=== PATIENT | female | born 1990 | race Caucasian/White ===

== ENCOUNTER 2024-03-31 01:26 | Emergency (ER) | payer OTHER ==
[~2024-03-31] VITALS: Ht 160 cm; Wt 111.1 kg
[2024-03-31 02:07] LABS: Source, Urine Clean Catch
[2024-03-31 02:15] LABS: Blood, Urine 1+ (Neg); Glucose Qualitative, Urine Neg (Neg); Ketones, Urine Neg (Neg); Leukocyte Esterase, Urine Neg (Neg); Nitrite, Urine Neg (Neg); Protein, Urine 1+ (Neg); Specific Gravity, Urine 1.025 (1.003-1.022); Urobilinogen, Urine 2+ (Normal)
[2024-03-31 02:21] LABS: Appearance, Urine Hazy (Clear); Bilirubin, Urine 1+ (Neg); Color, Urine Amber (P-Yellow)
[2024-03-31 02:22] LABS: Bacteria Few /hpf; Red Blood Cells, Urine 0-2 /hpf (0-2); Squamous Epithelial Cells Many /hpf (Few); White Blood Cells, Urine 0-2 /hpf (0-5)
[2024-03-31 02:28] LABS: Albumin, Blood 4.3 g/dL (3.4-5.0); Albumin/Globulin Ratio 1.1 (0.8-1.8); Bilirubin, Total 0.4 mg/dL (0.1-1.0); Bun/Creatinine Ratio 24.7 (12.0-20.0); Calcium, Blood 9.1 mg/dL (8.5-10.1); Creatinine, Blood 0.65 mg/dL (0.40-1.00); Globulin, Blood 3.8 g/dL (2.2-4.0); Potassium, Blood 3.7 mmol/L (3.5-5.5); Total Protein, Blood 8.1 g/dL (6.4-8.2)
[2024-03-31 02:36] LABS: BASOPHILS ABSOLUTE AUTO 0.04 K/mm3 (0.00-0.23); BASOPHILS PERCENT AUTO 1 % (0-2); EOSINOPHILS ABSOLUTE AUTO 0.26 K/mm3 (0.00-0.68); EOSINOPHILS PERCENT AUTO 4 % (0-6); Hematocrit 37.7 % (33.0-51.0); Hemoglobin 13.3 g/dL (11.5-16.0); IMMATURE GRAN ABSOLUTE AUTO 0.04 K/mm3 (0.00-0.10); IMMATURE GRAN PERCENT AUTO 1 % (0-1); LYMPHOCYTES ABSOLUTE AUTO 1.71 K/mm3 (0.84-5.20); LYMPHOCYTES PERCENT AUTO 26 % (21-46); MONOCYTES ABSOLUTE AUTO 0.53 K/mm3 (0.16-1.47); MONOCYTES PERCENT AUTO 8 % (4-13); Mean Corpuscular HGB 31.1 pg (26.0-34.0); Mean Corpuscular HGB Conc 35.3 g/dL (31.5-36.5); Mean Corpuscular Volume 88 fL (80-100); Mean Platelet Volume 9.8 fL (9.1-12.4); NEUTROPHILS ABSOLUTE AUTO 3.92 K/mm3 (1.96-9.15); NEUTROPHILS PERCENT AUTO 60 % (41-73); Platelet Count 266 K/mm3 (150-400); RDW Coefficient Variation 12.6 % (11.7-14.2); RDW Standard Deviation 40.7 fL (35.1-46.3); Red Blood Cell Count 4.27 M/mm3 (3.80-5.20)
== END 2024-03-31 03:36 | disposition home or self-care (01) ==
LOC: ER 01:26
PROVIDERS: Emergency Medicine
DX: K80.50 Calculus of bile duct without cholangitis or cholecystitis without obstruction (principal)
CPT/HCPCS: 76705; 80053; 81001; 81025; 83690; 85025; 99284-25

== ENCOUNTER 2024-04-14 01:18 | Observation (INO) | payer OTHER ==
[~2024-04-14] VITALS: Ht 160 cm; Wt 108.9 kg
[2024-04-14 02:07] LABS: Source, Urine Clean Catch
[2024-04-14 02:18] LABS: Bilirubin, Urine Neg (Neg); Blood, Urine 1+ (Neg); Glucose Qualitative, Urine Neg (Neg); Ketones, Urine Neg (Neg); Leukocyte Esterase, Urine Neg (Neg); Nitrite, Urine Neg (Neg); Protein, Urine 1+ (Neg); Specific Gravity, Urine 1.025 (1.003-1.022); Urobilinogen, Urine 1+ (Normal)
[2024-04-14 02:23] LABS: Appearance, Urine Hazy (Clear); Color, Urine Yellow (P-Yellow)
[2024-04-14 02:24] LABS: Anion Gap 10 mmol/L (3-11); Blood Urea Nitrogen 16 mg/dL (8-24); Bun/Creatinine Ratio 24.5 (12.0-20.0); CO2, Blood 24 mmol/L (21-32); Calcium, Blood 9.6 mg/dL (8.5-10.1); Chloride, Blood 110 mmol/L (98-108); Creatinine, Blood 0.65 mg/dL (0.40-1.00); Glomerular Filtration Rate 121 (60-); Glucose, Blood 105 mg/dL (70-99); Potassium, Blood 4.1 mmol/L (3.5-5.5); Sodium, Blood 140 mmol/L (136-145)
[2024-04-14 02:24] LABS: Bacteria Mod /hpf; Red Blood Cells, Urine 0-2 /hpf (0-2); Squamous Epithelial Cells Mod /hpf (Few); White Blood Cells, Urine 0-2 /hpf (0-5)
[2024-04-14] MEDS ORDERED: Piperacillin/Tazobactam Sod 4.5 GM in NS 100 ML IV ONE (02:45)
[2024-04-14 02:58] LABS: BASOPHILS ABSOLUTE AUTO 0.05 K/mm3 (0.00-0.23); BASOPHILS PERCENT AUTO 1 % (0-2); EOSINOPHILS ABSOLUTE AUTO 0.26 K/mm3 (0.00-0.68); EOSINOPHILS PERCENT AUTO 5 % (0-6); Hematocrit 37.5 % (33.0-51.0); IMMATURE GRAN ABSOLUTE AUTO 0.11 K/mm3 (0.00-0.10); IMMATURE GRAN PERCENT AUTO 2 % (0-1); LYMPHOCYTES ABSOLUTE AUTO 1.92 K/mm3 (0.84-5.20); LYMPHOCYTES PERCENT AUTO 35 % (21-46); MONOCYTES ABSOLUTE AUTO 0.41 K/mm3 (0.16-1.47); MONOCYTES PERCENT AUTO 8 % (4-13); Mean Corpuscular HGB 30.7 pg (26.0-34.0); Mean Corpuscular HGB Conc 34.7 g/dL (31.5-36.5); Mean Corpuscular Volume 89 fL (80-100); Mean Platelet Volume 9.7 fL (9.1-12.4); NEUTROPHILS ABSOLUTE AUTO 2.68 K/mm3 (1.96-9.15); NEUTROPHILS PERCENT AUTO 49 % (41-73); Platelet Count 294 K/mm3 (150-400); RDW Coefficient Variation 12.1 % (11.7-14.2); RDW Standard Deviation 38.5 fL (35.1-46.3); Red Blood Cell Count 4.23 M/mm3 (3.80-5.20); White Blood Cell Count 5.43 K/mm3 (4.00-11.30)
[2024-04-14] MEDS ORDERED: Ondansetron HCl 2 MG / ML 2ML Vial IV PRN (03:00)
[2024-04-14] MEDS ORDERED: HYDROmorphone HCl/Pf 1MG SYR IV PRN (03:00)
[2024-04-14] MEDS ORDERED: Acetaminophen 325 MG TABLET PO PRN (03:00)
[2024-04-14 03:39] LABS: Albumin, Blood 4.3 g/dL (3.4-5.0); Albumin/Globulin Ratio 1.2 (0.8-1.8); Aspartate Aminotrans (AST/SGOT 19 U/L (12-37); Bilirubin, Total 0.4 mg/dL (0.1-1.0); Globulin, Blood 3.7 g/dL (2.2-4.0)
[2024-04-14 04:27] LABS: Alanine Aminotransfer (ALT/SGP 28 U/L (12-78); Alk Phos 93 U/L (50-136); Bilirubin, Direct <0.1 mg/dL (0.0-0.3)
[2024-04-14 04:28] LABS: Bilirubin, Indirect Unable to Calculate mg/dL (0.1-0.7)
[2024-04-14 07:23] VITALS: BP 132/89
--- NOTE | 2024-04-14 08:13 | NUR ---
ARRIVAL PT ARRIVED TO UNIT FROM ER VIA WHEELCHAIR. STOOD AND TRANSFERED TO BED WITH NO WEAKNESS. REPORTS DULL, CONSISTANT ACHE TO MID EPIGASTRIC/RUQ. DENIES NEED FOR ANY MEDICATIONS. NO NAUSEA REPORTED. EDUCATED ON NPO STATUS AT THIS TIME AND AGREEABLE. CALL LIGHT PROVIDED.
[2024-04-14] MEDS ORDERED: CETI5 PO (09:00)
[2024-04-14] MEDS ORDERED: MAGNESIUM CITR100 M1 PO (09:01)
[2024-04-14] MEDS ORDERED: DEXT10ER PO (09:01)
[2024-04-14] MEDS ORDERED: FLU VACC TS2024-25(6MOS UP)/PF 45 MCG/0.5 ML SYRINGE IM ONE (12:05)
[2024-04-14] MEDS ORDERED: OMEP20ER PO (12:06)
--- NOTE | 2024-04-14 12:11 | NUR ---
DISCHARGE PT REPORTED PAIN STABLE DURING SHIFT. SPOKE WITH DR. BARCALY, NO NEED FOR SURGERY. AMBULATED OUT ON HER OWN. ALL BELONGINGS WITH PATIENT. DR. BARCLAY DISCUSSED PATIENT TAKING PRILOSEC 20MG ON DISCHARGE AND PT PLANS TO PICK SOME UP. IV REMOVED WNL.
== END 2024-04-14 12:12 | disposition home or self-care (01) ==
LOC: ER 01:18 → ERHOLD 01:19 → EDBEDREQ 02:56 → SURS 07:14
PROVIDERS: Student in an Organized Health Care Education/Training Program; ADMIT Surgery
DX: K80.20 Calculus of gallbladder without cholecystitis without obstruction (principal); E28.2 Polycystic ovarian syndrome; J45.909 Unspecified asthma, uncomplicated
CPT/HCPCS: 76705; 80048; 80076; 81001; 81025; 83690; 85025; 87086; 96365; 99285-25; G0378; J2543

== ENCOUNTER → 2024-06-29 | Outpatient (CLI) | payer OTHER ==
[~2024-06-29] MED LIST: CETI5 PO; DEXT10ER PO; MAGNESIUM CITR100 M1 PO; OMEP20ER PO
== END ==
LOC: LAB 09:30 → LAB SHORT 09:30
DX: R30.0 Dysuria (principal)
CPT/HCPCS: 87086

== ENCOUNTER 2024-07-07 22:59 | Observation (INO) | payer OTHER ==
[~2024-07-07] VITALS: Ht 160 cm; Wt 108.7 kg
[2024-07-08] VITALS (16 sets, daily range): BP systolic 112–137; BP diastolic 74–108
[2024-07-08] LABS: BASOPHILS ABSOLUTE AUTO 0.05 K/mm3 (0.00-0.23); BASOPHILS PERCENT AUTO 1 % (0-2); EOSINOPHILS ABSOLUTE AUTO 0.26 K/mm3 (0.00-0.68); EOSINOPHILS PERCENT AUTO 4 % (0-6); Hematocrit 35.4 % (33.0-51.0); Hemoglobin 12.7 g/dL (11.5-16.0); IMMATURE GRAN ABSOLUTE AUTO 0.05 K/mm3 (0.00-0.10); IMMATURE GRAN PERCENT AUTO 1 % (0-1); LYMPHOCYTES ABSOLUTE AUTO 2.42 K/mm3 (0.84-5.20); LYMPHOCYTES PERCENT AUTO 34 % (21-46); MONOCYTES ABSOLUTE AUTO 0.38 K/mm3 (0.16-1.47); MONOCYTES PERCENT AUTO 5 % (4-13); Mean Corpuscular HGB 30.7 pg (26.0-34.0); Mean Corpuscular HGB Conc 35.9 g/dL (31.5-36.5); Mean Corpuscular Volume 86 fL (80-100); Mean Platelet Volume 10.2 fL (9.1-12.4); NEUTROPHILS ABSOLUTE AUTO 3.88 K/mm3 (1.96-9.15); NEUTROPHILS PERCENT AUTO 55 % (41-73); Platelet Count 262 K/mm3 (150-400); RDW Coefficient Variation 12.4 % (11.7-14.2); RDW Standard Deviation 38.2 fL (35.1-46.3); Red Blood Cell Count 4.14 M/mm3 (3.80-5.20); White Blood Cell Count 7.04 K/mm3 (4.00-11.30)
[2024-07-08 00:13] LABS: Source, Urine Clean Catch
[2024-07-08 00:18] LABS: Bilirubin, Urine Neg (Neg); Blood, Urine 2+ (Neg); Glucose Qualitative, Urine Neg (Neg); Ketones, Urine Neg (Neg); Leukocyte Esterase, Urine Neg (Neg); Nitrite, Urine Neg (Neg); Protein, Urine 1+ (Neg); Specific Gravity, Urine 1.025 (1.003-1.022); Urobilinogen, Urine NORM (Normal)
[2024-07-08 00:25] LABS: Alanine Aminotransfer (ALT/SGP 25 U/L (12-78); Albumin, Blood 4.1 g/dL (3.4-5.0); Albumin/Globulin Ratio 1.2 (0.8-1.8); Alk Phos 114 U/L (50-136); Anion Gap 11 mmol/L (3-11); Aspartate Aminotrans (AST/SGOT 19 U/L (12-37); Beta HCG, Quantitative, Serum <1 mIU/mL (0-3); Bilirubin, Total 0.3 mg/dL (0.1-1.0); Blood Urea Nitrogen 16 mg/dL (8-24); Bun/Creatinine Ratio 26.1 (12.0-20.0); CO2, Blood 23 mmol/L (21-32); Calcium, Blood 9.2 mg/dL (8.5-10.1); Chloride, Blood 106 mmol/L (98-108); Creatinine, Blood 0.61 mg/dL (0.40-1.00); Globulin, Blood 3.5 g/dL (2.2-4.0); Glomerular Filtration Rate 123 (60-); Glucose, Blood 110 mg/dL (70-99); Potassium, Blood 3.5 mmol/L (3.5-5.5); Sodium, Blood 136 mmol/L (136-145); Total Protein, Blood 7.6 g/dL (6.4-8.2)
[2024-07-08 00:30] LABS: Appearance, Urine Clear (Clear); Color, Urine Yellow (P-Yellow)
[2024-07-08 00:31] LABS: Amorphous Light (0-Heavy); Bacteria Few /hpf; Mucus Light (0-Heavy); Red Blood Cells, Urine 0-2 /hpf (0-2); Squamous Epithelial Cells Few /hpf (Few); White Blood Cells, Urine 0-2 /hpf (0-5)
[2024-07-08] MEDS ORDERED: Ketorolac Tromethamine 30mg Vial IV ONE (01:30)
[2024-07-08] MEDS ORDERED: Ondansetron HCl 2 MG / ML 2ML Vial IV ONE (01:40)
[2024-07-08] MEDS ORDERED: Lactated Ringer's 1,000 ML IV ONE (01:40)
[2024-07-08] MEDS ORDERED: Morphine Sulfate 4 MG/1 ML Injection IV ONE (02:45)
[2024-07-08] MEDS ORDERED: Piperacillin/Tazobactam Sod 3.375 GM in NS 100 ML IV ONE (02:45)
[2024-07-08] MEDS ORDERED: Ketorolac Tromethamine 15mg Vial IV PRN (02:50)
[2024-07-08] MEDS ORDERED: NS KCl 20mEq 1,000 ML IV SCH (02:50)
[2024-07-08] MEDS ORDERED: Morphine Sulfate 4 MG/1 ML Injection IV PRN ×2 (02:50→07:35)
[2024-07-08] MEDS ORDERED: ACET500 PO (04:24)
[2024-07-08] MEDS ORDERED: NAPR220 PO (04:25)
[2024-07-08] MEDS ORDERED: PSEU120ER PO (04:26)
[2024-07-08] MEDS ORDERED: ALBU90OI (04:41)
--- NOTE | 2024-07-08 05:28 | NUR ---
ARRIVAL TO SURGICAL UNIT ROOM 228. PT ARRIVED TO ROOM AT 0353, PT ARRIVED VIA WHEEL CHAIR. PT AMBULATORY AND A/OX4. LOCALIZED ABDOMINAL PAIN TO RUQ. ORIENTED TO ROOM AND CALL LIGHT AND UNIT POLICIES. PT HAS WEDDING RING ON LEFT RING FINGER.
--- NOTE | 2024-07-08 05:44 | NUR ---
SHIFT SUMMARY NOC. PT ADMIT FOR ACUTE ACE. PT A/OX4, REPORTS RUQ PAIN. PT NPO SINCE ARRIVAL TO FLOOR. SURGICAL INFECTION PERFORMED. FLUIDS RUNNING PER EMAR. PT VOIDING URINE. PT MAKES NEEDS KNOWN, CALL LIGHT IN REACH.
--- NOTE | 2024-07-08 07:06 | NUR ---
0650: PT CALL TO NURSE'S STATION WITH C/O RIGHT FOREARM PAIN/SWELLING. IV FLUIDS DISCONTINUED AND IV REMOVED. CHARGE NURSE AWARE. NEW IV PLACED TO LAC. CALL LIGHT WITHIN REACH.
[2024-07-08] MEDS ORDERED: Ondansetron HCl 2 MG / ML 2ML Vial IV PRN (07:35)
[2024-07-08] MEDS ORDERED: Lactated Ringer's 1,000 ML IV SCH (07:35)
[2024-07-08] MEDS ORDERED: OxyCODONE HCL 5 MG TAB PO PRN (07:40)
[2024-07-08] MEDS ORDERED: Indocyanine Green 25 MG Vial IV STA (09:04)
[2024-07-08] MEDS ORDERED: CefOXitin Sodium 2,000 MG in NS 50 ML IV SCH (10:00)
[2024-07-08] MEDS ORDERED: FentaNYL Citrate 50 MCG/ML 2 ML Injection ONE (10:11)
[2024-07-08] MEDS ORDERED: Rocuronium Bromide 10 MG/ML 5ML Injection IV ONE (10:12)
[2024-07-08] MEDS ORDERED: propofoL 20 ML IV ONE (10:12)
--- NOTE | 2024-07-08 10:15 | NUR ---
PT TO DAY SURGERY VIA [facility]OMERO
[2024-07-08] MEDS ORDERED: Bupivacaine 0.5% HCl 5 MG/ML 30MLVIAL ONE (10:18)
--- NOTE | 2024-07-08 10:19 | NUR ---
FLUSHED 20G LFA IV SITE WITH 5NS/PATENT.
[2024-07-08] MEDS ORDERED: Bupivacaine 0.25% Epi 1:200000 30 ML Vial ONE (10:20)
[2024-07-08] MEDS ORDERED: Scopolamine Hydrobromide Patch TOP SCH (10:25)
[2024-07-08] MEDS ORDERED: Ondansetron HCl 2 MG / ML 2ML Vial ONE (11:18)
[2024-07-08] MEDS ORDERED: Ketamine HCl 100 MG / ML 5ML Vial ONE (11:18)
[2024-07-08] MEDS ORDERED: Dexamethasone Sod Phos 10 MG/ML 1ML VIAL ONE (11:18)
[2024-07-08] MEDS ORDERED: HYDROmorphone HCl/Pf 1MG SYR ONE ×2 (11:19→12:44)
[2024-07-08] MEDS ORDERED: Sugammadex Sodium 200 MG/2ML SDV (100 MG/ML) ONE (12:11)
[2024-07-08] MEDS ORDERED: HYDROmorphone HCl/Pf 1MG SYR IV PRN ×2 (12:35)
[2024-07-08] MEDS ORDERED: Albuterol 2.5 MG/3 ML VIAL INH PRN (12:35)
[2024-07-08] MEDS ORDERED: FentaNYL Citrate 50 MCG/ML 2 ML Injection IV PRN (12:40)
[2024-07-08] MEDS ORDERED: Ketorolac Tromethamine 30mg Vial IV PRN (12:40)
[2024-07-08] MEDS ORDERED: Metoclopramide HCl 5MG / ML 2ML Vial IV PRN (12:40)
--- NOTE | 2024-07-08 13:15 | NUR ---
ARRIVAL TO SURGICAL FLOOR PT ARRIVED TO FLOOR VIA GURNEY. STATES PAIN IS TOLERABLE NO NAUSEA. ABD SOFT w/LAP SITES x3, WNL. VSS. SNACKS AND DRINKS GIVEN.
--- NOTE | 2024-07-08 15:36 | NUR ---
PT TO DAY SURGERY VIA [facility]OMERO
[2024-07-08] MEDS ORDERED: OXYC5 PO (17:19)
--- NOTE | 2024-07-08 17:20 | NUR ---
SHIFT SUMMARY PT STATES FEELING MUCH BETTER AFTER SURGERY, PAIN CONTROLLED WELL. TOLERATING FOOD AND FLUIDS BETTER w/OUT FEELING SIGNIFICANT NAUSEA. VOIDED SUCCESSFULLY, AMBULATES IN ROOM w/SBA. LAP SITES x4, WNL, ABD SOFT. HOPES TO DC TONIGHT IF NAUSEA AND PAIN REMAIN CONTROLLED.
--- NOTE | 2024-07-08 18:50 | NUR ---
DISCHARGE SUMMARY PT TOLERATING FOOD AND FLUIDS WELL. PAIN CONTROLLED WELL, NO NAUSEA. LAP SITES x4 w/WOUND GLUE, WNL. VOIDED SUCCESSFULLY, AMBULATED IN ROOM INDEPENDENTLY. REQUESTS TO GO HOME TONIGHT. DISCHARGE INSTRUCTIONS REVIEWED AND GIVEN. RX GIVEN. ESCORTED OUT VIA WC.
== END 2024-07-08 18:50 | disposition home or self-care (01) ==
LOC: ER 22:59 → ERHOLD 23:00 → SURS 23:00
PROVIDERS: Student in an Organized Health Care Education/Training Program; Surgery; ADMIT Surgery
PROC: BF03YZZ Plain Radiography of Gallbladder and Bile Ducts using Other Contrast (ICD-10-PCS; principal; 2024-07-08 10:30)
PROC: 0FT44ZZ Resection of Gallbladder, Percutaneous Endoscopic Approach (ICD-10-PCS; principal; 2024-07-08 10:30)
DX: K80.12 Calculus of gallbladder with acute and chronic cholecystitis without obstruction (principal); J45.909 Unspecified asthma, uncomplicated; F90.9 Attention-deficit hyperactivity disorder, unspecified type; K21.9 Gastro-esophageal reflux disease without esophagitis; E66.9 Obesity, unspecified; Z68.41 Body mass index [BMI] 40.0-44.9, adult; Z79.899 Other long term (current) drug therapy
CPT/HCPCS: 76705; 80053; 81001; 83690; 84702; 85025; 88304; 96361; 96365; 96375; 99285-25; A9270; G0378; J0694; J1100; J1171; J1885; J2270; J2405; J2543; J2704; J3010; J3480; J7120